=== PATIENT | female | born 1965 | race Caucasian/White ===

== ENCOUNTER → 2023-03-24 | Outpatient (CLI) | payer MEDICAID, SELFPAY ==
--- NOTE | 2023-03-24 12:20 | RAD_ITS ---
EXAM: XR CERVICAL SPINE, 4 OR 5 VIEWS CLINICAL INDICATION: CERVICAL SPRAIN TECHNIQUE: Frontal, lateral and bilateral oblique views of the cervical spine. COMPARISON: No relevant prior studies available. FINDINGS: VERTEBRAE: Slight reversal of the normal cervical lordosis due to positioning or muscle spasm. Slight degenerative anterolisthesis of C3 on C4. No compression fracture, posterior element fracture or facet dislocation identified. The odontoid is intact. OTHER BONES/JOINTS: Visualized upper ribs are intact. DISC SPACES: There is degenerative narrowing of the mid to lower cervical disc spaces, more severe at the C5/6 and C6/7 levels; osteophytes surround the narrowed cervical disc spaces. Extensive cervical facet arthritis is present, greater on the left. Uncinate and facet hypertrophy causes bilateral neural foraminal encroachment at the C3/4, C5/6 and C6/7 levels, and left-sided neural foraminal encroachment at C4/5. SOFT TISSUES: Unremarkable. No prevertebral soft tissue widening. LUNG APICES: Visualized upper lungs are clear. RAD/Cerv Spine 4 or 5 Views IMPRESSION: 1. Reversal of the cervical lordosis due to positioning or muscle spasm. 2. No acute fracture. 3. Mid to lower cervical degenerative disc disease and facet arthritis. Electronically Signed: Nolberto Harding MD at 3:56 EDT ,
== END | disposition home or self-care (01) ==
LOC: RAD 12:16
PROVIDERS: PCP Registered Nurse; Referring Provider Chiropractor; Visit Provider Chiropractor
DX: S13.4XXA Sprain of ligaments of cervical spine, initial encounter (principal)
CPT/HCPCS: 72050